=== PATIENT | male | born 1955 | race Caucasian/White ===

== ENCOUNTER 2016-11-16 07:19 | Day surgery (SDC) | payer OTHER ==
[~2016-11-16] VITALS: Ht 188 cm; Wt 72.6 kg
[~2016-11-16 07:19] MED LIST: 0.9% Sodium Chloride 1,000 ML IV SCH; AMLO5TAB2 PO; CYAN50006 SL; FLUT15.88 NS; HYDR200T5 PO; MELA1TAB17 PO; MULT-1007 PO; MYCO500T PO; OMEP20TA24 PO; Sodium Chloride LOK Flush 10 mL Syringe IV PRN; fentaNYL-PF 50 mCg/mL 2 mL Inj IVPUSH PRN
[2016-11-16 07:43] VITALS: BP 126/76; PULSE 66; RESP 14; O2SAT 98
[2016-11-16 08:21] VITALS: BP 101/56; PULSE 57; RESP 14; O2SAT 99
[2016-11-16 08:31] VITALS: BP 100/58; PULSE 57; RESP 14; O2SAT 100
[2016-11-16 08:41] VITALS: BP 125/66; PULSE 65; RESP 14; O2SAT 100
--- NOTE | 2016-11-16 13:05 | ENDO ---
[address] [address] ENDOSCOPY PROCEDURE PATIENT: TOBY MUNIZ : 1955 MR#: [id number] ADMIT: 11/16/2016 JOB ID: [id number] PROCEDURE: Colonoscopy. INDICATIONS: Screening. Patient's ASA classification is II. Mallampati score is II. MEDICATIONS: Versed 5 mg, fentanyl 100 mcg. INSTRUMENT USED: PCF-H190. PREPARATION QUALITY: Good. PROCEDURE DETAILS: After informed consent was obtained, the patient was brought into the GI suite where he was placed on oxygen via nasal cannula and monitored with continuous pulse oximeter, telemetry, and blood pressure monitoring. A time-out was performed. Then, he was placed in a left lateral decubitus position and medications were administered for sedation. Digital rectal exam with palpation of the prostate was performed, which revealed an enlarged prostate without any palpable masses. The colonoscope was then inserted into the rectum and advanced under direct visualization to the cecum, which was identified by the presence of the ileocecal valve and appendiceal orifice. Once the cecum was reached, the colonoscope was withdrawn back into the rectum and mucosa and lumen were examined. In the rectum, retroflexion was performed. Following retroflexion, remaining air in the rectum was suctioned, and procedure was completed. FINDINGS: 1. In the distal rectum, there was a diminutive polyp that was removed with cold biopsy forceps. 2. Scattered diverticula were seen throughout the sigmoid colon. IMPRESSION: 1. Rectal polyp. 2. Sigmoid diverticulosis. RECOMMENDATIONS: 1. Fiber-rich diet. 2. Repeat colonoscopy pending polyp pathology results. COMPLICATIONS: None. ESTIMATED BLOOD LOSS: 5 mL.
--- NOTE | 2016-11-19 14:22 | PATH ---
SURGICAL PATHOLOGY Attending Physician:Kavon Johnson CASE STATUS: Signed Out PATIENT NAME: TOBY MUNIZ PID: [id number] : 1955 DATE COLLECTED:11/16/2016 21:30 SPECIMEN: Rectum, Biopsy CLINICAL HISTORY: POLYP 1). RECTAL POLYP X1 FINAL DIAGNOSIS: 1.RECTAL POLYP: HYPERPLASTIC POLYP INVOLVING TWO BIOPSY FRAGMENTS. ICD10 CODE K63.5 GROSS DESCRIPTION: Received in formalin, labeled with the patient' s name and "rectal polyp", are three fragments of green, soft tissue ranging in size from less than 0.1 cm by less than 0.1 cm by less than 0.1 cm to 0.2 x 0.1 x 0.1 cm. All fragments are totally submitted in one cassette. ([id number]) MICRO DESCRIPTION: See diagnosis. ICD-9 CODES: CPT CODES: 1: 00468 Electronically Signed Out Dirk Morales MD [facility] [address], [place] [address] Technical component performed at [facility], [facility] [address], [place], [address]
== END 2016-11-16 23:59 | disposition home or self-care (01) ==
LOC: END 07:19
PROVIDERS: ATTEND Internal Medicine Gastroenterology
DX: Z12.11 Encounter for screening for malignant neoplasm of colon (principal); K62.1 Rectal polyp; K57.30 Diverticulosis of large intestine without perforation or abscess without bleeding; N40.0 Benign prostatic hyperplasia without lower urinary tract symptoms; K21.9 Gastro-esophageal reflux disease without esophagitis; I73.00 Raynaud's syndrome without gangrene; I27.2 Other secondary pulmonary hypertension; M34.9 Systemic sclerosis, unspecified
CPT/HCPCS: 45380; G0500; J2250; J3010; J7030